=== PATIENT | male | born 1945 | race Caucasian/White ===

== ENCOUNTER 2022-07-24 15:39 | Emergency (ER) | payer MEDICARE, OTHER ==
[~2022-07-24] VITALS: Ht 170.2 cm; Wt 63.5 kg
[2022-07-24] MEDS ORDERED: IBUPROFEN 600 MG TABLET ONE (16:28)
[2022-07-24] MEDS ORDERED: IBUPROFEN 600 MG TABLET PO ONE (16:30)
--- NOTE | 2022-07-24 19:04 | NUR ---
BIBS, GOT OUT OF SHOWER, HAD A FALL, TRIPPED IN THE DARK ON SHOES, PAIN IN BETWEEN SHOULDERS
[2022-07-24] MEDS ORDERED: IBUP-1955 PO (19:14)
[2022-07-24] MEDS ORDERED: CYCL5TAB PO (19:14)
[2022-07-24 19:21] VITALS: BP 138/77
== END 2022-07-24 19:22 | disposition home or self-care (01) ==
LOC: ER 15:57
DX: M54.6 Pain in thoracic spine (principal); W18.39XA Other fall on same level, initial encounter; Y93.89 Activity, other specified; Y92.89 Other specified places as the place of occurrence of the external cause; Y99.8 Other external cause status
CPT/HCPCS: 72128-TC

== ENCOUNTER 2025-11-02 15:46 | Emergency (ER) | payer MEDICARE, OTHER ==
[~2025-11-02] VITALS: Ht 167.6 cm; Wt 64.4 kg
[~2025-11-02 15:46] MED LIST: CYCL5TAB PO; IBUP-1955 PO
[2025-11-02] MEDS ORDERED: LIDO30AD10 TP (17:22)
[2025-11-02] MEDS: ACETAMINOPHEN ES 500 MG TABLET PO ONE (17:30)
[2025-11-02] MEDS ORDERED: ACETAMINOPHEN ES 500 MG TABLET ONE (17:33)
[2025-11-02 17:50] VITALS: BP 111/75; TEMP 98.7; O2SAT 100
== END 2025-11-02 17:50 | disposition home or self-care (01) ==
LOC: ER 15:52
DX: S22.31XA Fracture of one rib, right side, initial encounter for closed fracture (principal); I51.9 Heart disease, unspecified; Z86.718 Personal history of other venous thrombosis and embolism; W01.0XXA Fall on same level from slipping, tripping and stumbling without subsequent striking against object, initial encounter; Y93.89 Activity, other specified; Y92.009 Unspecified place in unspecified non-institutional (private) residence as the place of occurrence of the external cause; Y99.8 Other external cause status
CPT/HCPCS: 71100-TC